=== PATIENT | female | born 1965 | race Caucasian/White ===

== ENCOUNTER 2017-08-11 07:49 | Day surgery (SDC) | payer OTHER ==
[~2017-08-11] VITALS: Ht 152.4 cm; Wt 64.0 kg
[~2017-08-11 07:49] MED LIST: ATROPINE 1 MG/10 ML SYRINGE IV PRN; CEFAZOLIN 2 GM/50 ML (PMX) 50 ML IVPB SCH; DIPHENHYDRAMINE 50 MG INJ IV PRN; EPHEDrine SULFATE 50 MG/5 ML SYG IV PRN; FENTAnyl 50 MCG/ML VIAL IV PRN; HYDROmorphONE (0.2 MG/ML) 10ML SYG IV PRN; LABETALOL HCL 20MG INJ IV PRN; MEPERIDINE 25 MG INJ IV PRN; MIDAZOLAM 1 MG/ML 2 ML INJ IV PRN; ONDANSETRON 4 MG INJ IV PRN; OXYCODONE/ACETAMINOPHEN (5/325) TAB PO PRN; SOD CHLORIDE 0.9% 1,000 ML IV SCH; hydrALAzine 20 MG INJ IV PRN; morphine (1 MG/ML) 10ML SYRINGE IV PRN
[2017-08-11] MEDS ORDERED: FER325 PO (08:17)
[2017-08-11] MEDS ORDERED: MULTI PO (08:17)
[2017-08-11 08:36] VITALS: Ht 152.4 cm; Wt 64.0 kg
[2017-08-11 08:39] VITALS: BP 141/86; PULSE 87; RESP 16
[2017-08-11] MEDS ORDERED: PROPOFOL 20 ML ONE (10:27)
[2017-08-11] MEDS ORDERED: CEFAZOLIN 1 GM INJ ONE (10:28)
[2017-08-11] MEDS ORDERED: ONDANSETRON 4 MG INJ ONE (10:28)
[2017-08-11] MEDS ORDERED: DEXAMETHASONE 4 MG/ML 1 ML INJ ONE (10:55)
[2017-08-11] MEDS ORDERED: BUPIVACAINE 0.25% (MPF) 30 ML INJ ONE (11:52)
--- NOTE | 2017-08-11 12:44 | OPR ---
Date/Time of Note Date/Time of Note DATE: 08/11/17 TIME: 12:39 Operative Report Procedure Date: Aug 11, 2017 Preoperative Diagnosis right abdominal wall mass Postoperative Diagnosis same Operation/Procedure Performed 1. right abdominal wall excision 7 cm mass 7 cm incision 2. localized adjacent tissue transfer with the use of skin flaps 21 sq cm defect 3. therapeutic injection of subcutaneous local anesthesia Surgeon see signature line Pacs Specialist none Anesthesia Type: general Estimated Blood Loss: minimal Transfusion none Specimen right abdominal mass Grafts/Implants none Complications none Pt Condition Post Procedure: stable Indications This is a 52-year-old female with a right abdominal wall mass. She requests surgical excision. Risks alternatives benefits and personnel were discussed with the patient. The patient expressed understanding and consents to the operation. Procedure Description Patient is taken to the OR and prepped and draped in usual sterile fashion. Surgical timeout was performed. IV antibiotics were given. Elliptical incision was made around the right abdominal wall mass with a 10 blade. Dissection cautery was carried onto the mass and circumferentially excised. Due to large tissue defect localized adjacent tissue transfer with these of skin flaps performed. Multilayer closure with interrupted 3-0 Vicryl and skin henny. Therapeutic subcutaneous local anesthesia is injected throughout the incision. Dressings were applied. Mitchell PURI Aug 11, 2017 12:44
[2017-08-11 12:48] VITALS: BP 122/69; PULSE 90; RESP 18
[2017-08-11 12:53] VITALS: BP 132/72; PULSE 86; RESP 15
[2017-08-11] MEDS ORDERED: HYDROCODONE/APAP (5/325) TAB PO ONE (13:00)
[2017-08-11 13:13] VITALS: BP 134/73; PULSE 82; RESP 16
== END 2017-08-11 14:07 | disposition home or self-care (01) ==
LOC: SDS 07:49
PROVIDERS: ATTEND Surgery
DX: L72.0 Epidermal cyst (principal)
CPT/HCPCS: 14001; 88307; J0690; J1100; J2405; Z7512; Z7610